=== PATIENT | female | born 1970 | race Caucasian/White ===

== ENCOUNTER 2019-11-09 18:03 | Emergency (ER) | payer OTHER ==
[~2019-11-09] VITALS: Ht 165.1 cm; Wt 95.3 kg
[2019-11-09] MEDS ORDERED: TAPAZOLE5 MG PO (18:13)
[2019-11-09 18:29] LABS: ABSOLUTE BASOPHILS 0.1 thou/uL (0.0-0.2); ABSOLUTE EOSINOPHILS 0.2 thou/uL (0.0-0.7); ABSOLUTE LYMPHOCYTES 3.5 thou/uL (0.8-5.3); ABSOLUTE MONOCYTES 0.9 thou/uL (0.0-1.2); ABSOLUTE NEUTROPHILS 7.2 thou/uL (1.6-8.1); EOSINOPHILS 1.7 %; HEMATOCRIT 47.2 % (37.0-47.0); HEMOGLOBIN 15.9 gm/dL (12.0-15.0); LYMPHOCYTES 29.2 %; MCH 29.5 pg (26.0-34.0); MCHC 33.7 g/dL (28.0-37.0); MCV 87.5 fL (80.0-100.0); MONOCYTES 7.5 %; MPV 8.8 fl. (7.2-11.1); NUCLEATED RBCS 0 /100WBC; PLATELET COUNT* 286 thou/uL (150-400); POLYS 60.6 %; WBC 11.9 thou/uL (4.0-11.0)
[2019-11-09 18:35] VITALS: BP 132/64
[2019-11-09 18:40] LABS: CALCIUM 8.7 mg/dL (8.5-10.1); CREATININE 0.7 mg/dL (0.6-1.3); POTASSIUM 4.2 mmol/L (3.5-5.1)
[2019-11-09 18:41] LABS: AMP/METHAMP Negative (Negative); BARBITURATES Negative (Negative); BENZODIAZEPINES Negative (Negative); COCAINE Negative (Negative); METHADONE Negative (Negative); OPIATES Negative (Negative); PCP Negative (Negative); THC Negative (Negative)
[2019-11-09 18:43] LABS: APTT 25.7 Seconds (25.0-31.3)
[2019-11-09 18:52] LABS: ALBUMIN 3.7 g/dL (3.4-5.0); TOTAL BILIRUBIN 0.2 mg/dL (<0.1-1.0); TOTAL PROTEIN 8.4 g/dL (6.4-8.2)
[2019-11-09 18:59] LABS: INFLUENZA A ANTIGEN Negative (Negative); INFLUENZA B ANTIGEN Negative (Negative)
--- NOTE | 2019-11-10 17:07 | EKG ---
[place] [address] ELECTROCARDIOGRAM REPORT Name: HOLLY HUGGINS Room: [facility]#: [id number] Admission: 11/09/19 Attend Phys: Discharge: 11/09/19 Date of : 66 Report #: [id number] THIS REPORT FOR: //name// [facility] ED Test Date: 2019-11-09 Test Time: 18:07:23 Pat Name: HOLLY HUGGINS Department: Room: Gender: F Director Speech Language: [place] : 1970 Requested By: Lily Devine Order Number: [id number] MD: Will Wallace Measurements Intervals [place] Rate: 81 P: 72 PA: 129 QRS: 63 QRSD: 93 T: 45 QT: 387 QTc: 450 Interpretive Statements Sinus rhythm Possible anterior infarct, age indeterminate Artifact in lead(s) V1,V3 and baseline wander in lead(s) V1 No previous ECG available for comparison Electronically Signed On 11-10-2019 17:07:01 [employer] by Will Wallace [email or web address] <ELECTRONICALLY SIGNED> By: Will Wallace MD, [facility] 11/10/19 1707 06 06 Will Wallace MD, FAC /EPI
== END 2019-11-09 19:15 | disposition left against medical advice (07) ==
LOC: M.ERS 18:03
PROVIDERS: Personal Emergency Response Attendant
DX: R07.89 Other chest pain (principal); F10.129 Alcohol abuse with intoxication, unspecified; Y90.6 Blood alcohol level of 120-199 mg/100 ml; I10 Essential (primary) hypertension; E78.00 Pure hypercholesterolemia, unspecified; F17.210 Nicotine dependence, cigarettes, uncomplicated; Z85.850 Personal history of malignant neoplasm of thyroid